=== PATIENT | female | born 1975 | race Caucasian/White ===

== ENCOUNTER 2022-01-07 06:56 | Emergency (ER) | payer SELFPAY ==
[~2022-01-07] VITALS: Ht 175.3 cm; Wt 90.7 kg
[2022-01-07 06:56] VITALS: BP 125/80
--- NOTE | 2022-01-07 06:56 | NUR ---
ARRIVAL PT PRESENTS TO THE ED VIA AMBULATORY WITH C/O LOWER BACK/FLANK PAIN. PT STATES THE PAIN RADIATES TO THE MIDDLE OF HER BACK AND INTO THE MIDDLE OF HER ABD. PT STATES SHE IS CURRENTLY ON HER MENSTRUAL CYCLE AND IS BLEEDING HEAVY, PT STATES SHE IS ANEMIC AND NEEDS BLOOD TRASNFUSIONS AND IS NOT SURE IF THAT IS HER PROBLEM. PT VITALS OBTAINED, PT STABLES, NOTIFIED OF PT ARRIVAL.
[2022-01-07] MEDS ORDERED: MOTRIN PO STA (07:23)
[2022-01-07] MEDS ORDERED: NORCO 10MG PO STA (07:23)
[2022-01-07] MEDS ORDERED: NORCO 10MG PO ONE (07:29)
[2022-01-07] MEDS ORDERED: MOTRIN ONE (07:29)
[2022-01-07 07:38] LABS: BASOPHIL % 0.3 % (0.0-0.2); LYMPHOCYTES # 1.01 10^3/uL1 (1.0-4.8); LYMPHOCYTES % 26.9 % (24.0-44.0); MEAN CORP HGB 29.5 pg (26-34); MONOCYTES # 0.5 10^3/uL (0.3-0.8); MONOCYTES % 12.3 % (5.0-12.0); NEUTROPHIL # 2.3 10^3/uL (1.8-7.7); NEUTROPHILS % 60.2 % (41.0-85.0); PLATELET COUNT 180 10^3/uL (150-400); RED CELL DISTRIBUTION WIDTH 12.7 % (11.5-14.5)
--- NOTE | 2022-01-07 07:42 | ER.PDOC ---
General Chief Complaint: Lower Back Pain or Injury Stated Complaint: BACK/FLANK PAIN Time seen by MD: 07:00 Source: patient Exam Limitations: no limitations History of Present Illness Timing/Duration: 1 week Severity/Quality: moderate Radiation: RUQ, RLQ, flank, back Associated Symptoms: denies symptoms Exacerbated by: upright, movements Relieved By: remaining still Allergies: Coded Allergies: No Known Allergies (Unverified , 03/12/13) Home Meds No Active Prescriptions or Reported Meds Vital Signs First Vital Signs Date Time Temp Pulse Resp B/P (MAP) Pulse Ox O2 Delivery O2 Flow Rate FiO2 01/07/22 06:56 98.7 95 16 125/80 (95) 98 Room Air* 0 21 Last Vital Signs Date Time Temp Pulse Resp B/P (MAP) Pulse Ox O2 Delivery O2 Flow Rate FiO2 01/07/22 08:17 90 16 110/56 (74) 96 Room Air* 0 21 01/07/22 06:56 98.7 Past Medical History Medical History: other Surgical History: tubal LMP (females 10-50): this week Social History Alcohol Use: none Drug Use: none Reviewed Nursing Reviewed: Vital Signs, Abn. Noted All Other Systems: Reviewed and Negative Physical Exam General Appearance: No Apparent Distress, WD/WN HEENT: PERRL/EOMI, Normal ENT Inspection, TMs Normal, Pharynx Normal Neck: Non-Tender, Full Range of Motion, Supple, Normal Inspection Respiratory: chest non-tender, lungs clear, normal breath sounds, no respiratory distress, no accessory muscle use Cardiovascular: Normal Peripheral Pulses, Regular Rate, Rhythm, No Edema, No Gallop, No JVD, No Murmur Gastrointestinal: Normal Bowel Sounds, Tenderness Back: CVA Tenderness (L), Decreased Range Of Motion, Muscle Spasm Extremities: Normal Range of Motion, Non-Tender, Normal Inspection, No Pedal Edema, No Calf Tenderness, Normal Capillary Refill, Pelvis Stable Neurologic/Psychiatric: cupola tender II-XII NML as Tested, No Motor/Sensory Deficits, Alert, Normal Mood/Affect, Oriented x 3 Skin: Normal Color, Warm/Dry Lymphatic: No Adenopathy Results/Orders Results/Orders Orders - COBY CHUN MD Cbc With Auto Diff (01/07/22 07:23) Comprehensive Metabolic Panel (01/07/22 07:23) Amylase (01/07/22 07:23) Lipase (01/07/22 07:23) PT (01/07/22 07:23) Partial Thromboplastin Time. (01/07/22 07:23) Hcg Qualitative Serum (01/07/22 07:23) Urinalysis (01/07/22 07:23) Ct Abd/Pelvis Wo Iv Contrast (01/07/22 07:23) Hydrocodone/Acetaminophen ([place] 10mg) (01/07/22 07:23) Ibuprofen (Motrin) (01/07/22 07:23) Covid19 Antigen Jigna Sharon (01/07/22 08:30) Hydrocodone/Acetaminophen ([place] 10mg) (01/07/22 07:29) Ibuprofen (Motrin) (01/07/22 07:29) Vital Signs Date Time Temp Pulse Resp B/P (MAP) Pulse Ox O2 Delivery O2 Flow Rate FiO2 01/07/22 08:17 90 16 110/56 (74) 96 Room Air* 0 21 01/07/22 06:56 98.7 95 16 01/07/22 06:56 98.7 95 16 98 01/07/22 06:56 98.7 95 16 125/80 (95) 98 Room Air* 0 21 Administered Medications Medications (Trade) Dose Ordered Sig/Venu Route PRN Reason Start Time Stop Time Status Last Admin Dose Admin Acetaminophen/ Hydrocodone Bitart ([place] 10mg) 1 each STAT STAT PO 01/07/22 07:23 01/07/22 08:43 DC 01/07/22 07:36 1 EACH Ibuprofen (Motrin) 800 mg STAT STAT PO 01/07/22 07:23 01/07/22 08:43 DC 01/07/22 07:36 800 MG Laboratory Tests Test 01/07/22 07:15 01/07/22 07:30 Urine Collection Type RANDOM Urine Color RED Urine Appearance CLOUDY Urine Bilirubin (NEGATIVE) Urine Ketones (NEGATIVE) Urine Specific [place] (1.005-1.030) Urine pH (4.5-8.0) Urine Protein (NEGATIVE) Urine Urobilinogen E.U./dL (0.2) Urine Nitrate (NEGATIVE) Urine Leukocyte Esterase (NEGATIVE) Urine Glucose (Auto)(UA) (NEGATIVE) Urine Blood (NEGATIVE) Urine RBC TooNumerousToCount RBC/HPF (NONE Urine WBC 0-2 WBC/HPF (0-2) Urine Squamous Epithelial Cells NONE SEEN (<=FEW) Urine Bacteria NONE SEEN (NONE SEEN) Urine Comment White Blood Count 3.8 10^3/uL (4.5-11.0) L Red Blood Count 4.81 10^6/uL (4.00-5.20) Hemoglobin 14.2 g/dL (12.0-15.0) Hematocrit 44.3 % (36.0-46.0) Mean Corpuscular Volume 92.1 fL (78-100) Mean Corpuscular Hemoglobin 29.5 pg (26-34) Mean Corpuscular Hemoglobin Concent 32.1 g/dL (33-36.5) L Red Cell Distribution Width 12.7 % (11.5-14.5) Platelet Count 180 10^3/uL (150-400) Mean Platelet Volume 10.2 fL (7.8-11.0) Neutrophils (%) (Auto) 60.2 % (41.0-85.0) Lymphocytes (%) (Auto) 26.9 % (24.0-44.0) Monocytes (%) (Auto) 12.3 % (5.0-12.0) H Neutrophils # (Auto) 2.3 10^3/uL (1.8-7.7) Lymphocytes # (Auto) 1.01 10^3/uL1 (1.0-4.8) Monocytes # (Auto) 0.5 10^3/uL (0.3-0.8) Absolute Immature Granulocyte (auto 0.01 10^3 u/L (0-2) Absolute Eosinophils (auto) 0.0 10^3/uL (0.0-0.2) Immature Granulocytes % 0.30 % (0.00-0.50) Eosinophils % 0.0 % (0.0-5.0) Basophils % 0.3 % (0.0-0.2) H Basophils # 0.0 10^3/uL (0.0-0.1) Prothrombin Time 9.9 SEC (9.1-11.5) Prothrombin Time INR (Non-Therap) 1.0 Activated Partial Thromboplast Time 30.1 SEC (22.5-33.1) Sodium Level 141 mmol/L (132-145) Potassium Level 3.8 mmol/L (3.6-5.2) Chloride Level 103.0 mmol/L (96-109) Carbon Dioxide Level 26.1 mmol/L (20.0-32) Anion Gap 15.7 Blood Urea Nitrogen 11 mg/dL (7-18) Creatinine 0.63 mg/dL (0.59-1.40) Estimated GFR () 122.6 (>/=60) Est GFR (CKD-EPI)(Non-Afr [place]) 101.3 (>/=60) BUN/Creatinine Ratio 17.0 Glucose Level 126 mg/dL (70-110) H Calcium Level 8.1 mg/dL (8.4-10.5) L Total Bilirubin 0.2 mg/dL (0.2-1.0) Aspartate Amino Transferase (AST) 15 U/L (0-35) Alanine Aminotransferase (ALT) 17 U/L (12-78) Alkaline Phosphatase 59 U/L (50-136) Total Protein 6.5 g/dL (6.4-8.2) Albumin 3.4 g/dL (3.4-5.0) Globulin 3.1 Albumin/Globulin Ratio 1.096 Amylase Level 37 U/L (25-115) Lipase 107 U/L (114-286) L Serum HCG, Qualitative NEGATIVE (NEGATIVE) ER DEPART Departure Time of Disposition: 08:33 Disposition: 01 HOME / SELF CARE / HOMELESS Impression: Primary Impression: Low back pain Additional Impression: Ureteric colic Condition: Improved Referrals: PCP,UNKNOWN (PCP) PRIMARY CARE PROVIDER Scripts No Active Prescriptions or Reported Meds Duration or Time Spent with Pa: 12m Return to Work/School Can a patient return to work?: No Can a patient return to school: No Problem Qualifiers COBY CHUN MD Jan 07, 2022 07:42
[2022-01-07 07:57] LABS: CARBON DIOXIDE 26.1 mmol/L (20.0-32)
--- NOTE | 2022-01-07 08:02 | DIREP ---
PROCEDURE:CT ABDOMEN/PELVIS W/O CONTRAST COMPARISON:[facility], CT, CT ABD/PELVIS W/ CONTRAST, 12/12/2019, 08:42 PM. INDICATIONS:l flank pain TECHNIQUE:Axial images were created through the abdomen and pelvis without intravenous contrast material. No oral contrast was administered. Sagittal and coronal reconstructions were performed from source images. FINDINGS:Evaluation of the soft tissues is limited without intravenous contrast. LUNG BASES:Normal. No visible pulmonary or pleural disease. LIVER:Normal. No significant liver lesions are identified. BILIARY:Normal. No visible dilatation or calcification. PANCREAS:Normal. No lesion, fluid collection, ductal dilatation, or atrophy. SPLEEN:Normal. No enlargement or focal lesion. ADRENALS:Normal. No mass or enlargement. URINARY TRACT:3.1 cm cystic lesion in the left lower pole, incompletely characterized without contrast. 4 mm nonobstructing left nephrolith. No distal urolithiasis or hydronephrosis noted. Punctate nonobstructing right nephrolith. AORTA/VASCULAR:Multiple calcified phleboliths in the pelvis. RETROPERITONEUM:Normal. No mass or adenopathy. BOWEL/MESENTERY:The appendix is visualized and appears normal. There is no intestinal obstruction, free fluid, free air or mesenteric inflammatory changes. ABDOMINAL WALL:Normal. No mass or hernia. PELVIC ORGANS:Uterine fibroids, incompletely characterized without contrast. BONES:Degenerative changes, most severe at the L5-S1 level with moderate loss of disc height. OTHER:Negative. CONCLUSION:1. 4 mm nonobstructing left nephrolith, with punctate nonobstructing right nephrolith. 2. 3.1 cm left renal cystic lesion, incompletely characterized without intravenous contrast. 3. No acute abnormality otherwise noted. Dictated by: Thomas Archer M.D. on 01/07/2022 at 07:56 AM
[2022-01-07 08:17] VITALS: BP 110/56
== END 2022-01-07 08:24 | disposition home or self-care (01) ==
LOC: ER 06:56
DX: M54.50 Low back pain, unspecified (principal); N36.8 Other specified disorders of urethra
CPT/HCPCS: 36415; 74176; 80053; 81001; 82150; 83690; 84703; 85025; 85610; 85730; 87426; 99284